=== PATIENT | male | born 1940 | race Caucasian/White ===

== ENCOUNTER 2020-11-11 20:28 | Inpatient (IN) | payer MEDICARE ==
[2020-11-11] MEDS ORDERED: Sodium Chloride 0.9% 1,000 ML IV SCH (22:45)
[2020-11-11] MEDS ORDERED: Ondansetron PF 4 MG/2 ML Vial IVP PRN (22:45)
[2020-11-11] MEDS ORDERED: Acetaminophen 325 MG TAB PO PRN (22:45)
[2020-11-11] MEDS ORDERED: Ondansetron ODT 4 MG TAB SL PRN (22:45)
[2020-11-12] MEDS ORDERED: Pharmacy to Dose REMDESIVIR IVPB PRN (00:30)
[2020-11-12] MEDS: Benzonatate 100 MG CAP PO PRN ×3 (04:23→20:48)
[2020-11-12 07:24] LABS: Anion Gap 13 mmol/L (10-20); BUN (Urea Nitrogen) 24 mg/dL (8.4-25.7); Calc. Creatinine Clearance 79 mL/min (70-130); Calcium 8.2 mg/dL (7.8-10.44); Carbon Dioxide 21 mmol/L (23-31); Chloride 107 mmol/L (98-107); Glucose 157 mg/dL (83-110); Potassium 4.1 mmol/L (3.5-5.1); Sodium 137 mmol/L (136-145)
[2020-11-12 07:25] LABS: ALT (SGPT) 29 U/L (8-55); AST (SGOT) 63 U/L (5-34); Albumin 3.3 g/dL (3.4-4.8); Alkaline Phosphatase 120 U/L (40-110); Bilirubin, Direct 0.3 mg/dL (0.1-0.3); Bilirubin, Total 0.5 mg/dL (0.2-1.2); CRP (Inflammatory) 9.66 mg/dL (= or < 0.5); Protein, Total 6.4 g/dL (5.8-8.1)
[2020-11-12 08:14] LABS: #Lymphocytes 0.6 thou/uL (1.20-3.40); #Monocytes 0.4 thou/uL (0.11-0.59); #Neutrophils 2.2 thou/uL (1.40-6.50); %Eosinophils 0.1 % (0.0-10.0); %Lymphocytes 18.9 % (21.0-51.0); %Neutrophils 69.1 % (42.0-75.0); Hemoglobin 16.1 g/dL (14.0-18.0); MDiff Complete? YES; Mean Corpuscular HGB CONC 31.5 g/dL (32.0-36.0); Mean Corpuscular Hemoglobin 29.7 pg (27.0-31.0); Mean Corpuscular Volume 94.3 fL (78.0-98.0); Mean Platelet Volume 8.6 fL (7.4-10.4); Platelet Count 113 thou/uL (130-400); Platelet Morphology Comment Appears Decreased; RBC Distribution Width 12.4 % (11.5-14.5); Red Blood Cell (RBC) Count 5.44 mill/uL (4.70-6.10); White Blood Cell (WBC) Count 3.2 thou/uL (4.8-10.8)
[2020-11-12] MEDS: Ascorbic Acid 500 mg Chewable Tablet PO SCH (08:46)
[2020-11-12] MEDS: Enoxaparin Sodium 40 MG/0.4 ML SYRINGE SC SCH (08:46)
[2020-11-12] MEDS: Dexamethasone 10 MG/ML VIAL SLOW IVP SCH (08:46)
[2020-11-12] MEDS: Cholecalciferol 1,000 UNITS (25 MCG) TAB PO SCH (08:47)
[2020-11-12] MEDS: Zinc Sulfate 220 MG CAP PO SCH (08:47)
[2020-11-12] MEDS: Famotidine 20 MG TAB PO SCH ×2 (08:47→20:49)
[2020-11-12] MEDS: Ondansetron PF 4 MG/2 ML Vial IVP PRN (12:42)
[2020-11-12] MEDS ORDERED: REMDESIVIR 200 MG in Sodium Chloride 0.9% 250 ML 210 ML IV SCH (13:00)
[2020-11-12] MEDS: Lisinopril 20 MG TAB PO SCH (20:48)
[2020-11-12] MEDS: Carvedilol 3.125 MG TAB PO SCH (20:48)
[2020-11-12] MEDS: Rosuvastatin 20 MG TAB PO SCH (20:48)
[2020-11-12] MEDS ORDERED: Senokot S 8.6-50 MG TAB PO SCH (22:15)
[2020-11-12] MEDS: Melatonin 3 MG TAB PO PRN (22:53)
[2020-11-13] MEDS: Benzonatate 100 MG CAP PO PRN ×2 (03:59→20:39)
[2020-11-13 06:22] LABS: #Lymphocytes 0.7 thou/uL (1.20-3.40); #Monocytes 0.7 thou/uL (0.11-0.59); #Neutrophils 6.2 thou/uL (1.40-6.50); %Basophils 0.1 % (0.0-1.0); %Eosinophils 0.1 % (0.0-10.0); %Lymphocytes 9.3 % (21.0-51.0); %Monocytes 9.3 % (0.0-10.0); %Neutrophils 81.2 % (42.0-75.0); Hemoglobin 17.3 g/dL (14.0-18.0); Mean Corpuscular HGB CONC 33.7 g/dL (32.0-36.0); Mean Corpuscular Hemoglobin 31.8 pg (27.0-31.0); Mean Corpuscular Volume 94.3 fL (78.0-98.0); Mean Platelet Volume 8.4 fL (7.4-10.4); Platelet Count 149 thou/uL (130-400); RBC Distribution Width 12.4 % (11.5-14.5); Red Blood Cell (RBC) Count 5.45 mill/uL (4.70-6.10); White Blood Cell (WBC) Count 7.7 thou/uL (4.8-10.8)
[2020-11-13 06:41] LABS: Anion Gap 14 mmol/L (10-20); BUN (Urea Nitrogen) 26 mg/dL (8.4-25.7); Calc. Creatinine Clearance 67 mL/min (70-130); Calcium 8.5 mg/dL (7.8-10.44); Carbon Dioxide 24 mmol/L (23-31); Chloride 107 mmol/L (98-107); Glucose 134 mg/dL (83-110); Potassium 4.7 mmol/L (3.5-5.1); Sodium 140 mmol/L (136-145)
[2020-11-13 06:44] LABS: ALT (SGPT) 47 U/L (8-55); AST (SGOT) 87 U/L (5-34); Albumin 3.3 g/dL (3.4-4.8); Alkaline Phosphatase 122 U/L (40-110); Bilirubin, Direct 0.3 mg/dL (0.1-0.3); Bilirubin, Total 0.6 mg/dL (0.2-1.2); Protein, Total 6.8 g/dL (5.8-8.1)
[2020-11-13] MEDS: Aspirin 325 MG TAB PO SCH (08:52)
[2020-11-13] MEDS: Zinc Sulfate 220 MG CAP PO SCH (08:52)
[2020-11-13] MEDS: Enoxaparin Sodium 40 MG/0.4 ML SYRINGE SC SCH (08:52)
[2020-11-13] MEDS: Senokot S 8.6-50 MG TAB PO SCH ×2 (08:52→20:37)
[2020-11-13] MEDS: Ondansetron PF 4 MG/2 ML Vial IVP PRN (08:52)
[2020-11-13] MEDS: Cholecalciferol 1,000 UNITS (25 MCG) TAB PO SCH (08:52)
[2020-11-13] MEDS: Famotidine 20 MG TAB PO SCH ×2 (08:52→20:37)
[2020-11-13] MEDS: Carvedilol 3.125 MG TAB PO SCH ×2 (08:53→20:37)
[2020-11-13] MEDS: Ascorbic Acid 500 mg Chewable Tablet PO SCH (08:53)
[2020-11-13] MEDS: Dexamethasone 10 MG/ML VIAL SLOW IVP SCH (09:34)
[2020-11-13] MEDS: REMDESIVIR 100 MG in Sodium Chloride 0.9% 250 ML 230 ML IV SCH (13:29)
[2020-11-13] MEDS ORDERED: Thiamine 100 MG TAB PO SCH (15:15)
[2020-11-13] MEDS: Lisinopril 20 MG TAB PO SCH (20:37)
[2020-11-13] MEDS: Rosuvastatin 20 MG TAB PO SCH (20:37)
[2020-11-13] MEDS: Melatonin 3 MG TAB PO PRN (20:37)
[2020-11-14] MEDS: Benzonatate 100 MG CAP PO PRN ×2 (00:31→16:33)
[2020-11-14 06:42] LABS: #Lymphocytes 0.5 thou/uL (1.20-3.40); #Monocytes 0.5 thou/uL (0.11-0.59); #Neutrophils 5.1 thou/uL (1.40-6.50); %Basophils 0.4 % (0.0-1.0); %Eosinophils 0.1 % (0.0-10.0); %Lymphocytes 8.4 % (21.0-51.0); %Monocytes 8.4 % (0.0-10.0); %Neutrophils 82.6 % (42.0-75.0); Hemoglobin 16.4 g/dL (14.0-18.0); Mean Corpuscular HGB CONC 32.7 g/dL (32.0-36.0); Mean Corpuscular Volume 94.9 fL (78.0-98.0); Mean Platelet Volume 8.2 fL (7.4-10.4); Platelet Count 166 thou/uL (130-400); RBC Distribution Width 12.3 % (11.5-14.5); White Blood Cell (WBC) Count 6.1 thou/uL (4.8-10.8)
[2020-11-14 07:15] LABS: Anion Gap 14 mmol/L (10-20); BUN (Urea Nitrogen) 37 mg/dL (8.4-25.7); Calc. Creatinine Clearance 76 mL/min (70-130); Calcium 8.3 mg/dL (7.8-10.44); Carbon Dioxide 25 mmol/L (23-31); Chloride 107 mmol/L (98-107); Glucose 113 mg/dL (83-110); Potassium 3.9 mmol/L (3.5-5.1); Sodium 142 mmol/L (136-145)
[2020-11-14 07:17] LABS: ALT (SGPT) 41 U/L (8-55); AST (SGOT) 71 U/L (5-34); Albumin 3.1 g/dL (3.4-4.8); Alkaline Phosphatase 115 U/L (40-110); Bilirubin, Direct 0.4 mg/dL (0.1-0.3); Bilirubin, Total 0.6 mg/dL (0.2-1.2); Protein, Total 6.3 g/dL (5.8-8.1)
[2020-11-14] MEDS: Dexamethasone 10 MG/ML VIAL SLOW IVP SCH (08:04)
[2020-11-14] MEDS: Aspirin 325 MG TAB PO SCH (08:39)
[2020-11-14] MEDS: Zinc Sulfate 220 MG CAP PO SCH (08:39)
[2020-11-14] MEDS: Famotidine 20 MG TAB PO SCH ×2 (08:40→20:11)
[2020-11-14] MEDS: Senokot S 8.6-50 MG TAB PO SCH ×2 (08:40→20:12)
[2020-11-14] MEDS: Carvedilol 3.125 MG TAB PO SCH ×2 (08:40→20:11)
[2020-11-14] MEDS: Enoxaparin Sodium 100 MG/ML SYRINGE SC SCH (08:40)
[2020-11-14] MEDS: Cholecalciferol 1,000 UNITS (25 MCG) TAB PO SCH (08:40)
[2020-11-14] MEDS: Ascorbic Acid 500 mg Chewable Tablet PO SCH (08:40)
[2020-11-14] MEDS: Thiamine 100 MG TAB PO SCH (08:40)
[2020-11-14] MEDS: Ondansetron PF 4 MG/2 ML Vial IVP PRN (08:47)
[2020-11-14] MEDS: REMDESIVIR 100 MG in Sodium Chloride 0.9% 250 ML 230 ML IV SCH (12:08)
[2020-11-14] MEDS: Lisinopril 20 MG TAB PO SCH (20:11)
[2020-11-14] MEDS: Melatonin 3 MG TAB PO PRN (22:47)
[2020-11-15 04:16] LABS: #Lymphocytes 0.5 thou/uL (1.20-3.40); #Monocytes 0.6 thou/uL (0.11-0.59); #Neutrophils 5.2 thou/uL (1.40-6.50); %Eosinophils 0.1 % (0.0-10.0); %Lymphocytes 8.6 % (21.0-51.0); %Monocytes 8.8 % (0.0-10.0); %Neutrophils 82.5 % (42.0-75.0); Mean Corpuscular HGB CONC 32.9 g/dL (32.0-36.0); Mean Corpuscular Hemoglobin 30.9 pg (27.0-31.0); Mean Platelet Volume 8.3 fL (7.4-10.4); Platelet Count 192 thou/uL (130-400); RBC Distribution Width 12.3 % (11.5-14.5); Red Blood Cell (RBC) Count 5.17 mill/uL (4.70-6.10); White Blood Cell (WBC) Count 6.3 thou/uL (4.8-10.8)
[2020-11-15 04:35] LABS: ALT (SGPT) 39 U/L (8-55); AST (SGOT) 61 U/L (5-34); Albumin 2.9 g/dL (3.4-4.8); Alkaline Phosphatase 102 U/L (40-110); Anion Gap 13 mmol/L (10-20); BUN (Urea Nitrogen) 35 mg/dL (8.4-25.7); Bilirubin, Total 0.7 mg/dL (0.2-1.2); Calc. Creatinine Clearance 88 mL/min (70-130); Calcium 8.2 mg/dL (7.8-10.44); Carbon Dioxide 22 mmol/L (23-31); Chloride 109 mmol/L (98-107); Globulin 3.2 g/dL (2.4-3.5); Glucose 123 mg/dL (83-110); Potassium 3.8 mmol/L (3.5-5.1); Protein, Total 6.1 g/dL (5.8-8.1); Sodium 140 mmol/L (136-145)
[2020-11-15] MEDS: Ondansetron PF 4 MG/2 ML Vial IVP PRN (06:54)
[2020-11-15] MEDS: Carvedilol 3.125 MG TAB PO SCH ×2 (08:23→20:47)
[2020-11-15] MEDS: Zinc Sulfate 220 MG CAP PO SCH (08:23)
[2020-11-15] MEDS: Aspirin 325 MG TAB PO SCH (08:23)
[2020-11-15] MEDS: Cholecalciferol 1,000 UNITS (25 MCG) TAB PO SCH (08:23)
[2020-11-15] MEDS: Ascorbic Acid 500 mg Chewable Tablet PO SCH (08:23)
[2020-11-15] MEDS: Thiamine 100 MG TAB PO SCH (08:23)
[2020-11-15] MEDS: Enoxaparin Sodium 100 MG/ML SYRINGE SC SCH (08:23)
[2020-11-15] MEDS: Senokot S 8.6-50 MG TAB PO SCH ×2 (08:23→20:46)
[2020-11-15] MEDS: Famotidine 20 MG TAB PO SCH ×2 (08:24→20:47)
[2020-11-15] MEDS: Dexamethasone 4 MG TAB PO SCH (08:24)
[2020-11-15] MEDS ORDERED: Furosemide 40 MG TAB PO SCH (09:00)
[2020-11-15] MEDS: REMDESIVIR 100 MG in Sodium Chloride 0.9% 250 ML 230 ML IV SCH (12:58)
[2020-11-15] MEDS: Lisinopril 20 MG TAB PO SCH (20:46)
[2020-11-15] MEDS: Melatonin 3 MG TAB PO PRN (20:47)
[2020-11-16 04:06] LABS: #Lymphocytes 0.6 thou/uL (1.20-3.40); #Monocytes 0.6 thou/uL (0.11-0.59); #Neutrophils 6.1 thou/uL (1.40-6.50); %Eosinophils 0.1 % (0.0-10.0); %Lymphocytes 7.7 % (21.0-51.0); %Monocytes 8.2 % (0.0-10.0); Hemoglobin 17.2 g/dL (14.0-18.0); Mean Corpuscular HGB CONC 33.7 g/dL (32.0-36.0); Mean Corpuscular Hemoglobin 31.8 pg (27.0-31.0); Mean Corpuscular Volume 94.3 fL (78.0-98.0); Platelet Count 219 thou/uL (130-400); RBC Distribution Width 12.3 % (11.5-14.5); Red Blood Cell (RBC) Count 5.43 mill/uL (4.70-6.10); White Blood Cell (WBC) Count 7.3 thou/uL (4.8-10.8)
[2020-11-16 04:26] LABS: ALT (SGPT) 44 U/L (8-55); AST (SGOT) 57 U/L (5-34); Alkaline Phosphatase 108 U/L (40-110); Anion Gap 16 mmol/L (10-20); BUN (Urea Nitrogen) 37 mg/dL (8.4-25.7); Bilirubin, Total 0.9 mg/dL (0.2-1.2); CRP (Inflammatory) 5.95 mg/dL (= or < 0.5); Calc. Creatinine Clearance 75 mL/min (70-130); Calcium 8.2 mg/dL (7.8-10.44); Carbon Dioxide 21 mmol/L (23-31); Chloride 107 mmol/L (98-107); Globulin 3.3 g/dL (2.4-3.5); Glucose 136 mg/dL (83-110); Potassium 3.6 mmol/L (3.5-5.1); Protein, Total 6.3 g/dL (5.8-8.1); Sodium 140 mmol/L (136-145)
[2020-11-16] MEDS: Aspirin 325 MG TAB PO SCH (09:01)
[2020-11-16] MEDS: Zinc Sulfate 220 MG CAP PO SCH (09:01)
[2020-11-16] MEDS: Furosemide 40 MG TAB PO SCH (09:01)
[2020-11-16] MEDS: Enoxaparin Sodium 100 MG/ML SYRINGE SC SCH (09:01)
[2020-11-16] MEDS: Cholecalciferol 1,000 UNITS (25 MCG) TAB PO SCH (09:02)
[2020-11-16] MEDS: Carvedilol 3.125 MG TAB PO SCH ×2 (09:02→21:07)
[2020-11-16] MEDS: Famotidine 20 MG TAB PO SCH ×2 (09:02→21:07)
[2020-11-16] MEDS: Ascorbic Acid 500 mg Chewable Tablet PO SCH (09:02)
[2020-11-16] MEDS: Senokot S 8.6-50 MG TAB PO SCH ×2 (09:02→21:07)
[2020-11-16] MEDS: Thiamine 100 MG TAB PO SCH (09:02)
[2020-11-16] MEDS: Dexamethasone 4 MG TAB PO SCH (09:03)
[2020-11-16] MEDS: REMDESIVIR 100 MG in Sodium Chloride 0.9% 250 ML 230 ML IV SCH (15:07)
[2020-11-16] MEDS: Lisinopril 20 MG TAB PO SCH (21:06)
[2020-11-16] MEDS: Melatonin 3 MG TAB PO PRN (21:07)
[2020-11-17 05:00] LABS: #Lymphocytes 0.5 thou/uL (1.20-3.40); #Monocytes 0.5 thou/uL (0.11-0.59); %Eosinophils 0.2 % (0.0-10.0); %Lymphocytes 5.8 % (21.0-51.0); %Monocytes 5.9 % (0.0-10.0); %Neutrophils 88.2 % (42.0-75.0); Mean Corpuscular HGB CONC 32.8 g/dL (32.0-36.0); Mean Corpuscular Hemoglobin 30.7 pg (27.0-31.0); Mean Corpuscular Volume 93.6 fL (78.0-98.0); Mean Platelet Volume 7.6 fL (7.4-10.4); Platelet Count 288 thou/uL (130-400); RBC Distribution Width 12.6 % (11.5-14.5); Red Blood Cell (RBC) Count 5.53 mill/uL (4.70-6.10); White Blood Cell (WBC) Count 9.1 thou/uL (4.8-10.8)
[2020-11-17 05:19] LABS: ALT (SGPT) 40 U/L (8-55); AST (SGOT) 53 U/L (5-34); Albumin 2.9 g/dL (3.4-4.8); Alkaline Phosphatase 113 U/L (40-110); Anion Gap 16 mmol/L (10-20); BUN (Urea Nitrogen) 36 mg/dL (8.4-25.7); CRP (Inflammatory) 2.99 mg/dL (= or < 0.5); Calc. Creatinine Clearance 78 mL/min (70-130); Calcium 8.1 mg/dL (7.8-10.44); Carbon Dioxide 22 mmol/L (23-31); Chloride 108 mmol/L (98-107); Globulin 3.1 g/dL (2.4-3.5); Glucose 123 mg/dL (83-110); Potassium 3.5 mmol/L (3.5-5.1); Sodium 142 mmol/L (136-145)
[2020-11-17] MEDS: Thiamine 100 MG TAB PO SCH (08:43)
[2020-11-17] MEDS: Enoxaparin Sodium 40 MG/0.4 ML SYRINGE SC SCH ×2 (08:43→21:17)
[2020-11-17] MEDS: Furosemide 40 MG TAB PO SCH (08:43)
[2020-11-17] MEDS: Dexamethasone 4 MG TAB PO SCH (08:43)
[2020-11-17] MEDS: Zinc Sulfate 220 MG CAP PO SCH (08:43)
[2020-11-17] MEDS: Ascorbic Acid 500 mg Chewable Tablet PO SCH (08:44)
[2020-11-17] MEDS: Carvedilol 3.125 MG TAB PO SCH ×2 (08:44→21:15)
[2020-11-17] MEDS: Senokot S 8.6-50 MG TAB PO SCH ×2 (08:44→21:18)
[2020-11-17] MEDS: Famotidine 20 MG TAB PO SCH ×2 (08:44→21:16)
[2020-11-17] MEDS: Cholecalciferol 1,000 UNITS (25 MCG) TAB PO SCH (08:44)
[2020-11-17] MEDS: Aspirin 325 MG TAB PO SCH (08:44)
[2020-11-17] MEDS: Lisinopril 20 MG TAB PO SCH (21:15)
[2020-11-17] MEDS: Melatonin 3 MG TAB PO PRN (21:16)
[2020-11-18 04:43] LABS: Hemoglobin 17.3 g/dL (14.0-18.0); Mean Corpuscular HGB CONC 32.3 g/dL (32.0-36.0); Mean Corpuscular Hemoglobin 30.4 pg (27.0-31.0); Mean Corpuscular Volume 94.3 fL (78.0-98.0); Mean Platelet Volume 8.1 fL (7.4-10.4); Platelet Count 303 thou/uL (130-400); RBC Distribution Width 12.7 % (11.5-14.5); Red Blood Cell (RBC) Count 5.69 mill/uL (4.70-6.10); White Blood Cell (WBC) Count 9.5 thou/uL (4.8-10.8)
[2020-11-18 04:44] LABS: Band 1 % (5-11); MDiff Complete? YES; Monocytes 9 % (0-10); Neutrophil 90 % (42-75); Platelet Morphology Comment Appears Adequate; RBC Morphology Normal
[2020-11-18 04:50] LABS: ALT (SGPT) 38 U/L (8-55); AST (SGOT) 52 U/L (5-34); Albumin 2.8 g/dL (3.4-4.8); Alkaline Phosphatase 120 U/L (40-110); Anion Gap 16 mmol/L (10-20); BUN (Urea Nitrogen) 36 mg/dL (8.4-25.7); Bilirubin, Total 0.9 mg/dL (0.2-1.2); CRP (Inflammatory) 1.51 mg/dL (= or < 0.5); Calc. Creatinine Clearance 83 mL/min (70-130); Calcium 8.1 mg/dL (7.8-10.44); Carbon Dioxide 19 mmol/L (23-31); Chloride 110 mmol/L (98-107); Globulin 3.2 g/dL (2.4-3.5); Glucose 132 mg/dL (83-110); Potassium 3.6 mmol/L (3.5-5.1); Sodium 141 mmol/L (136-145)
[2020-11-18] MEDS: Dexamethasone 4 MG TAB PO SCH (08:57)
[2020-11-18] MEDS: Enoxaparin Sodium 40 MG/0.4 ML SYRINGE SC SCH ×2 (08:57→20:57)
[2020-11-18] MEDS: Senokot S 8.6-50 MG TAB PO SCH ×2 (08:58→20:57)
[2020-11-18] MEDS: Aspirin 325 MG TAB PO SCH (08:58)
[2020-11-18] MEDS: Thiamine 100 MG TAB PO SCH (08:58)
[2020-11-18] MEDS: Famotidine 20 MG TAB PO SCH ×2 (08:58→20:56)
[2020-11-18] MEDS: Carvedilol 3.125 MG TAB PO SCH ×2 (08:58→20:57)
[2020-11-18] MEDS: Cholecalciferol 1,000 UNITS (25 MCG) TAB PO SCH (08:58)
[2020-11-18] MEDS: Ascorbic Acid 500 mg Chewable Tablet PO SCH (08:58)
[2020-11-18] MEDS: Zinc Sulfate 220 MG CAP PO SCH (08:58)
[2020-11-18 12:53] VITALS: BMI 27.8
[2020-11-18] MEDS: Lisinopril 20 MG TAB PO SCH (20:56)
[2020-11-18] MEDS: Melatonin 3 MG TAB PO PRN (20:58)
[2020-11-19] MEDS: Enoxaparin Sodium 40 MG/0.4 ML SYRINGE SC SCH ×2 (08:50→21:10)
[2020-11-19] MEDS: Ascorbic Acid 500 mg Chewable Tablet PO SCH (10:00)
[2020-11-19] MEDS: Dexamethasone 4 MG TAB PO SCH (10:00)
[2020-11-19] MEDS: Carvedilol 3.125 MG TAB PO SCH ×2 (10:01→21:18)
[2020-11-19] MEDS: Aspirin 325 MG TAB PO SCH (10:01)
[2020-11-19] MEDS: Senokot S 8.6-50 MG TAB PO SCH ×2 (10:04→21:09)
[2020-11-19] MEDS: Famotidine 20 MG TAB PO SCH ×2 (10:04→19:09)
[2020-11-19] MEDS: Cholecalciferol 1,000 UNITS (25 MCG) TAB PO SCH (10:04)
[2020-11-19] MEDS: Thiamine 100 MG TAB PO SCH (10:05)
[2020-11-19] MEDS: Zinc Sulfate 220 MG CAP PO SCH (10:05)
[2020-11-19] MEDS ORDERED: Propofol 1,000 MG/100 ML VIAL IV ONE (14:42)
[2020-11-19 14:51] LABS: Actual Bicarbonate (HCO3a) 20.5 mEq/L (22-28); Base Excess (BEa) -3.9 mEq/L (-2.0 to +3.0); CO2 Tension 36.2 mmHg (35.0-45.0); Calcium, Ionized (arterial) 1.18 mmol/L (1.12-1.30); Carboxyhemoglobin (COHb) 0.1 gm% (0.0-3.0); Hemoglobin (Hb) 18.8 g/dL (14.0-18.0); Potassium - ABG Lab 3.54 mmol/L (3.70-5.30); pH, Arterial 7.37 (7.35-7.45)
[2020-11-19 14:54] LABS: O2 Tension (PaO2), arterial 49.3 mmHg (> 60.0)
[2020-11-19 14:55] LABS: Puncture Site LBA
[2020-11-19] MEDS ORDERED: Vecuronium 10 MG VIAL ONE ×2 (15:28→20:28)
[2020-11-19] MEDS ORDERED: Propofol BOLUS 1,000 MG/100 ML VIAL IV PRN (15:30)
[2020-11-19] MEDS ORDERED: Fentanyl CADD 100 ML IV SCH (15:30)
[2020-11-19] MEDS ORDERED: DISCONTINUE PREVIOUS NARCOTIC PAIN MEDICATIONS AND BENZODIAZEPINES FS SCH (15:30)
[2020-11-19] MEDS ORDERED: Fentanyl BOLUS 250 ML IVPB PRN (15:30)
[2020-11-19] MEDS: Lorazepam 2 MG/ML VIAL SLOW IVP PRN ×4 (15:44→23:42)
[2020-11-19] MEDS: Propofol 1,000 MG/100 ML VIAL IV PRN (17:22)
[2020-11-19] MEDS ORDERED: Sodium Chloride 0.9% 1,000 ML IV SCH (17:30)
[2020-11-19] MEDS ORDERED: Lactated Ringer's 500 ML IV SCH (20:15)
[2020-11-19] MEDS ORDERED: Dexamethasone 10 MG in Sodium Chloride 0.9% 50 ML IVPB SCH (21:00)
[2020-11-19] MEDS: Lisinopril 20 MG TAB PO SCH (21:16)
[2020-11-19] MEDS: Dexamethasone 10 MG/ML VIAL SLOW IVP SCH (21:45)
[2020-11-19] MEDS: Vecuronium 10 MG VIAL IV PRN (23:42)
[2020-11-20] MEDS: Propofol 1,000 MG/100 ML VIAL IV PRN ×5 (02:04→17:10)
[2020-11-20] MEDS: Vecuronium 10 MG VIAL IV PRN ×2 (04:21→14:41)
[2020-11-20] MEDS: Lorazepam 2 MG/ML VIAL SLOW IVP PRN ×3 (04:21→19:43)
[2020-11-20] MEDS: Ascorbic Acid 500 mg Chewable Tablet PO SCH (08:46)
[2020-11-20] MEDS: Thiamine 100 MG TAB PO SCH (08:47)
[2020-11-20] MEDS: Cholecalciferol 1,000 UNITS (25 MCG) TAB PO SCH (08:47)
[2020-11-20] MEDS: Famotidine 20 MG TAB PO SCH ×2 (08:47→19:45)
[2020-11-20] MEDS: Dexamethasone 10 MG/ML VIAL SLOW IVP SCH (08:50)
[2020-11-20] MEDS: Acetaminophen 650 MG/20.3 ML UDCUP PER TUBE PRN (08:51)
[2020-11-20] MEDS: Zinc Sulfate 220 MG CAP PO SCH (08:51)
[2020-11-20] MEDS: Aspirin 325 MG TAB PO SCH (09:03)
[2020-11-20] MEDS: Enoxaparin Sodium 40 MG/0.4 ML SYRINGE SC SCH ×2 (09:03→19:42)
[2020-11-20] MEDS: Carvedilol 3.125 MG TAB PO SCH ×2 (09:04→19:45)
[2020-11-20] MEDS: Senokot S 8.6-50 MG TAB PO SCH ×2 (09:05→19:45)
[2020-11-20] MEDS: Cefepime 1 GM in Sodium Chloride 0.9% 100 ML IVPB SCH ×2 (11:42→23:32)
[2020-11-20] MEDS ORDERED: Lactated Ringer's 1,000 ML IV SCH (11:45)
[2020-11-20 11:49] LABS: Hemoglobin 17.7 g/dL (14.0-18.0); Mean Corpuscular HGB CONC 33.2 g/dL (32.0-36.0); Mean Corpuscular Hemoglobin 31.9 pg (27.0-31.0); Mean Corpuscular Volume 96.2 fL (78.0-98.0); Mean Platelet Volume 8.1 fL (7.4-10.4); Platelet Count 219 thou/uL (130-400); RBC Distribution Width 13.1 % (11.5-14.5); Red Blood Cell (RBC) Count 5.56 mill/uL (4.70-6.10)
[2020-11-20 11:59] LABS: ALT (SGPT) 38 U/L (8-55); AST (SGOT) 41 U/L (5-34); Albumin 2.7 g/dL (3.4-4.8); Alkaline Phosphatase 139 U/L (40-110); Anion Gap 15 mmol/L (10-20); BUN (Urea Nitrogen) 42 mg/dL (8.4-25.7); Bilirubin, Total 0.7 mg/dL (0.2-1.2); Calc. Creatinine Clearance 50 mL/min (70-130); Calcium 8.1 mg/dL (7.8-10.44); Carbon Dioxide 22 mmol/L (23-31); Chloride 113 mmol/L (98-107); Globulin 2.4 g/dL (2.4-3.5); Glucose 228 mg/dL (83-110); Potassium 4.2 mmol/L (3.5-5.1); Protein, Total 5.1 g/dL (5.8-8.1); Sodium 146 mmol/L (136-145)
[2020-11-20 12:07] LABS: Band 7 % (5-11); Large Platelets SLIGHT; Lymphocytes 5 % (21-51); MDiff Complete? YES; Monocytes 7 % (0-10); Neutrophil 81 % (42-75); Platelet Morphology Comment Appears Adequate; Polychromasia SLIGHT = 2-3 cells (100X) (0-2/hpf)
[2020-11-20] MEDS: Dexamethasone 4 mg/ml Vial SLOW IVP SCH (19:43)
[2020-11-20] MEDS: Lisinopril 20 MG TAB PO SCH ×2 (19:44→21:47)
[2020-11-21] MEDS: Lorazepam 2 MG/ML VIAL SLOW IVP PRN ×4 (01:59→14:51)
[2020-11-21] MEDS: Vecuronium 10 MG VIAL IV PRN ×4 (01:59→14:51)
[2020-11-21] MEDS: Propofol 1,000 MG/100 ML VIAL IV PRN ×2 (03:51→18:05)
[2020-11-21 04:56] LABS: Band 7 % (5-11); Hemoglobin 16.6 g/dL (14.0-18.0); Lymphocytes 3 % (21-51); MDiff Complete? YES; Mean Corpuscular Hemoglobin 30.6 pg (27.0-31.0); Mean Corpuscular Volume 95.7 fL (78.0-98.0); Mean Platelet Volume 8.2 fL (7.4-10.4); Metamyelocyte 1 % (0-0); Monocytes 1 % (0-10); Neutrophil 88 % (42-75); Platelet Count 204 thou/uL (130-400); Platelet Morphology Comment Appears Adequate; RBC Distribution Width 13.1 % (11.5-14.5); RBC Morphology Normal; Red Blood Cell (RBC) Count 5.43 mill/uL (4.70-6.10)
[2020-11-21] MEDS: Dexamethasone 4 mg/ml Vial SLOW IVP SCH ×2 (08:57→22:28)
[2020-11-21] MEDS: Famotidine 20 MG TAB PO SCH ×3 (08:58→22:28)
[2020-11-21] MEDS: Ascorbic Acid 500 mg Chewable Tablet PO SCH ×2 (08:58→15:54)
[2020-11-21] MEDS: Cholecalciferol 1,000 UNITS (25 MCG) TAB PO SCH ×2 (08:58→15:54)
[2020-11-21] MEDS: Carvedilol 3.125 MG TAB PO SCH ×3 (08:58→22:20)
[2020-11-21] MEDS: Aspirin 325 MG TAB PO SCH ×2 (08:58→15:54)
[2020-11-21] MEDS: Enoxaparin Sodium 40 MG/0.4 ML SYRINGE SC SCH ×2 (08:58→22:28)
[2020-11-21] MEDS: Senokot S 8.6-50 MG TAB PO SCH ×3 (08:58→22:28)
[2020-11-21] MEDS: Thiamine 100 MG TAB PO SCH ×2 (08:58→15:54)
[2020-11-21] MEDS: Zinc Sulfate 220 MG CAP PO SCH ×2 (08:59→15:54)
[2020-11-21] MEDS: Cefepime 1 GM in Sodium Chloride 0.9% 100 ML IVPB SCH (11:52)
[2020-11-21] MEDS: Lisinopril 20 MG TAB PO SCH (22:20)
[2020-11-21] MEDS ORDERED: Dexamethasone 4 mg/ml Vial ONE (22:26)
[2020-11-22] MEDS: Cefepime 1 GM in Sodium Chloride 0.9% 100 ML IVPB SCH ×2 (00:04→10:12)
[2020-11-22] MEDS: Propofol 1,000 MG/100 ML VIAL IV PRN (02:14)
[2020-11-22] MEDS: Acetaminophen 650 MG/20.3 ML UDCUP PER TUBE PRN ×4 (04:09→20:14)
[2020-11-22] MEDS: Lorazepam 2 MG/ML VIAL SLOW IVP PRN ×4 (04:50→23:50)
[2020-11-22 05:25] LABS: Band 9 % (5-11); Eosinophils 1 % (0-10); Hemoglobin 17.4 g/dL (14.0-18.0); Lymphocytes 2 % (21-51); MDiff Complete? YES; Mean Corpuscular Hemoglobin 31.4 pg (27.0-31.0); Mean Corpuscular Volume 95.1 fL (78.0-98.0); Mean Platelet Volume 8.7 fL (7.4-10.4); Monocytes 6 % (0-10); Neutrophil 81 % (42-75); Platelet Count 202 thou/uL (130-400); Platelet Morphology Comment Appears Adequate; RBC Distribution Width 13.4 % (11.5-14.5); RBC Morphology Normal; Reactive Lymphocytes 1 % (0-10); Red Blood Cell (RBC) Count 5.54 mill/uL (4.70-6.10); White Blood Cell (WBC) Count 12.5 thou/uL (4.8-10.8)
[2020-11-22 05:34] LABS: Anion Gap 13 mmol/L (10-20); BUN (Urea Nitrogen) 50 mg/dL (8.4-25.7); Calc. Creatinine Clearance 61 mL/min (70-130); Calcium 8.5 mg/dL (7.8-10.44); Carbon Dioxide 25 mmol/L (23-31); Chloride 111 mmol/L (98-107); Glucose 181 mg/dL (83-110); Potassium 4.3 mmol/L (3.5-5.1); Sodium 145 mmol/L (136-145)
[2020-11-22] MEDS: Senokot S 8.6-50 MG TAB PO SCH ×2 (07:36→20:15)
[2020-11-22] MEDS: Zinc Sulfate 220 MG CAP PO SCH (07:36)
[2020-11-22] MEDS: Enoxaparin Sodium 40 MG/0.4 ML SYRINGE SC SCH ×2 (07:37→20:15)
[2020-11-22] MEDS: Cholecalciferol 1,000 UNITS (25 MCG) TAB PO SCH (07:37)
[2020-11-22] MEDS: Carvedilol 3.125 MG TAB PO SCH ×2 (07:37→20:45)
[2020-11-22] MEDS: Ascorbic Acid 500 mg Chewable Tablet PO SCH (07:37)
[2020-11-22] MEDS: Famotidine 20 MG TAB PO SCH ×2 (07:37→20:15)
[2020-11-22] MEDS: Thiamine 100 MG TAB PO SCH (07:38)
[2020-11-22] MEDS: Dexamethasone 4 mg/ml Vial SLOW IVP SCH ×2 (07:38→20:16)
[2020-11-22] MEDS: Aspirin 325 MG TAB PO SCH (07:42)
[2020-11-22] MEDS: Cefepime 2 GM in Sodium Chloride 0.9% 100 ML IVPB SCH ×2 (12:06→23:50)
[2020-11-22] MEDS: Vecuronium 10 MG VIAL IV PRN (12:40)
[2020-11-22 14:03] LABS: Actual Bicarbonate (HCO3a) 23.6 mEq/L (22-28); Base Excess (BEa) -2.2 mEq/L (-2.0 to +3.0); CO2 Tension 43.8 mmHg (35.0-45.0); Carboxyhemoglobin (COHb) 0.6 gm% (0.0-3.0); Hemoglobin (Hb) 18.2 g/dL (14.0-18.0); Potassium - ABG Lab 4.28 mmol/L (3.70-5.30); pH, Arterial 7.35 (7.35-7.45)
[2020-11-22] MEDS ORDERED: Norepinephrine 8 MG/0.9% NS 250 ML ONE (15:56)
[2020-11-22 16:16] LABS: O2 Tension (PaO2), arterial 58.2 mmHg (> 60.0); Puncture Site RRA
[2020-11-22] MEDS ORDERED: Norepinephrine 8 MG/0.9% NS 250 ML IVPB SCH (16:45)
[2020-11-22] MEDS: Lisinopril 20 MG TAB PO SCH (20:45)
[2020-11-23] MEDS: Vecuronium 10 MG VIAL IV PRN ×3 (02:04→17:56)
[2020-11-23] MEDS: Lorazepam 2 MG/ML VIAL SLOW IVP PRN ×3 (02:04→17:56)
[2020-11-23] MEDS: Acetaminophen 650 MG/20.3 ML UDCUP PER TUBE PRN ×3 (05:46→17:55)
[2020-11-23] MEDS: Morphine 2 MG/ML VIAL SLOW IVP PRN ×2 (07:30→17:56)
[2020-11-23] MEDS: Dexamethasone 4 mg/ml Vial SLOW IVP SCH ×2 (07:30→20:49)
[2020-11-23] MEDS: Enoxaparin Sodium 40 MG/0.4 ML SYRINGE SC SCH ×2 (07:30→20:49)
[2020-11-23] MEDS: Ascorbic Acid 500 mg Chewable Tablet PO SCH (07:31)
[2020-11-23] MEDS: Senokot S 8.6-50 MG TAB PO SCH ×2 (07:31→20:50)
[2020-11-23] MEDS: Thiamine 100 MG TAB PO SCH (07:31)
[2020-11-23] MEDS: Cholecalciferol 1,000 UNITS (25 MCG) TAB PO SCH (07:31)
[2020-11-23] MEDS: Famotidine 20 MG TAB PO SCH ×2 (07:31→20:50)
[2020-11-23] MEDS: Zinc Sulfate 220 MG CAP PO SCH (07:32)
[2020-11-23] MEDS: Carvedilol 3.125 MG TAB PO SCH (07:32)
[2020-11-23] MEDS: Aspirin 325 MG TAB PO SCH (07:34)
[2020-11-23 07:50] LABS: Actual Bicarbonate (HCO3a) 22.5 mEq/L (22-28); Base Excess (BEa) -2.3 mEq/L (-2.0 to +3.0); CO2 Tension 39.1 mmHg (35.0-45.0); Calcium, Ionized (arterial) 1.21 mmol/L (1.12-1.30); Carboxyhemoglobin (COHb) 0.7 gm% (0.0-3.0); Potassium - ABG Lab 4.45 mmol/L (3.70-5.30); pH, Arterial 7.38 (7.35-7.45)
[2020-11-23 08:01] LABS: O2 Tension (PaO2), arterial 59.1 mmHg (> 60.0); Puncture Site RRA
[2020-11-23 08:03] LABS: ALV-art Gradient 248.525 mmHg (0-20)
[2020-11-23 08:04] LABS: Hemoglobin 17.5 g/dL (14.0-18.0); Mean Corpuscular HGB CONC 31.8 g/dL (32.0-36.0); Mean Corpuscular Hemoglobin 30.8 pg (27.0-31.0); Mean Corpuscular Volume 96.9 fL (78.0-98.0); Mean Platelet Volume 9.1 fL (7.4-10.4); Platelet Count 196 thou/uL (130-400); RBC Distribution Width 13.5 % (11.5-14.5); Red Blood Cell (RBC) Count 5.69 mill/uL (4.70-6.10); White Blood Cell (WBC) Count 13.9 thou/uL (4.8-10.8)
[2020-11-23 08:18] LABS: Anion Gap 15 mmol/L (10-20); BUN (Urea Nitrogen) 62 mg/dL (8.4-25.7); Calc. Creatinine Clearance 49 mL/min (70-130); Calcium 8.5 mg/dL (7.8-10.44); Carbon Dioxide 20 mmol/L (23-31); Chloride 116 mmol/L (98-107); Glucose 253 mg/dL (83-110); Potassium 5.2 mmol/L (3.5-5.1); Sodium 146 mmol/L (136-145)
[2020-11-23 09:29] LABS: Band 12 % (5-11); Lymphocytes 5 % (21-51); MDiff Complete? YES; Monocytes 3 % (0-10); Neutrophil 80 % (42-75); Platelet Morphology Comment Appears Adequate; Polychromasia SLIGHT = 2-3 cells (100X) (0-2/hpf); Vacuoles SLIGHT
[2020-11-23] MEDS: Cefepime 2 GM in Sodium Chloride 0.9% 100 ML IVPB SCH ×2 (11:24→23:06)
[2020-11-23] MEDS ORDERED: Carvedilol 3.125 MG TAB PO SCH (15:04)
[2020-11-23] MEDS ORDERED: Dextrose 5% w/ 20 mEq KCl 1,000 ML IV SCH (15:15)
[2020-11-24] MEDS: Lorazepam 2 MG/ML VIAL SLOW IVP PRN ×2 (00:18→08:25)
[2020-11-24] MEDS: Vecuronium 10 MG VIAL IV PRN ×3 (00:18→08:26)
[2020-11-24 04:02] LABS: #Lymphocytes 0.7 thou/uL (1.20-3.40); #Monocytes 1.3 thou/uL (0.11-0.59); #Neutrophils 15.2 thou/uL (1.40-6.50); %Lymphocytes 4.3 % (21.0-51.0); %Monocytes 7.5 % (0.0-10.0); %Neutrophils 88.2 % (42.0-75.0); Mean Corpuscular HGB CONC 31.5 g/dL (32.0-36.0); Mean Corpuscular Hemoglobin 31.2 pg (27.0-31.0); Mean Platelet Volume 9.3 fL (7.4-10.4); Platelet Count 232 thou/uL (130-400); RBC Distribution Width 13.7 % (11.5-14.5); Red Blood Cell (RBC) Count 5.78 mill/uL (4.70-6.10); White Blood Cell (WBC) Count 17.2 thou/uL (4.8-10.8)
[2020-11-24 05:09] LABS: Anion Gap 14 mmol/L (10-20); BUN (Urea Nitrogen) 76 mg/dL (8.4-25.7); Calc. Creatinine Clearance 44 mL/min (70-130); Calcium 8.8 mg/dL (7.8-10.44); Carbon Dioxide 24 mmol/L (23-31); Chloride 115 mmol/L (98-107); Glucose 300 mg/dL (83-110); Potassium 5.5 mmol/L (3.5-5.1); Sodium 147 mmol/L (136-145)
[2020-11-24] MEDS: Acetaminophen 650 MG/20.3 ML UDCUP PER TUBE PRN (08:23)
[2020-11-24] MEDS: Enoxaparin Sodium 40 MG/0.4 ML SYRINGE SC SCH (08:23)
[2020-11-24] MEDS: Cholecalciferol 1,000 UNITS (25 MCG) TAB PO SCH (08:24)
[2020-11-24] MEDS: Aspirin 325 MG TAB PO SCH (08:24)
[2020-11-24] MEDS: Senokot S 8.6-50 MG TAB PO SCH (08:24)
[2020-11-24] MEDS: Zinc Sulfate 220 MG CAP PO SCH (08:24)
[2020-11-24] MEDS: Ascorbic Acid 500 mg Chewable Tablet PO SCH (08:24)
[2020-11-24] MEDS: Famotidine 20 MG TAB PO SCH (08:24)
[2020-11-24] MEDS: Thiamine 100 MG TAB PO SCH (08:25)
[2020-11-24] MEDS: Morphine 2 MG/ML VIAL SLOW IVP PRN (08:25)
[2020-11-24] MEDS ORDERED: Dexamethasone 4 mg/ml Vial SLOW IVP SCH (09:00)
[2020-11-24] MEDS: Cefepime 2 GM in Sodium Chloride 0.9% 100 ML IVPB SCH (10:38)
[2020-11-24 12:09] VITALS: TEMP 101.4
[2020-11-24 14:27] VITALS: BP 101/64
[2020-11-24] MEDS ORDERED: Morphine 2 MG/ML VIAL SLOW IVP PRN (15:18)
[2020-11-24] MEDS ORDERED: Lorazepam 2 MG/ML VIAL SLOW IVP PRN (15:19)
[2020-11-25] MEDS ORDERED: Famotidine 20 MG TAB PO SCH (09:00)
== END 2020-11-24 15:53 | disposition expired | DRG 207 ==
LOC: T4-B 20:28 → IMCU/EMU 11-14 22:36 → CCU 11-19 14:32
PROVIDERS: ADMIT Internal Medicine; ATTEND Internal Medicine
PROC: 8E0ZXY6 Isolation (ICD-10-PCS; principal; 2020-11-11)
PROC: XW033E5 Introduction of Remdesivir Anti-infective into Peripheral Vein, Percutaneous Approach, New Technology Group 5 (ICD-10-PCS; 2020-11-12)
PROC: XW033H5 Introduction of Tocilizumab into Peripheral Vein, Percutaneous Approach, New Technology Group 5 (ICD-10-PCS; 2020-11-14)
PROC: 5A09357 Assistance with Respiratory Ventilation, Less than 24 Consecutive Hours, Continuous Positive Airway Pressure (ICD-10-PCS; 2020-11-18)
PROC: 5A1955Z Respiratory Ventilation, Greater than 96 Consecutive Hours (ICD-10-PCS; 2020-11-19)
PROC: 0BH17EZ Insertion of Endotracheal Airway into Trachea, Via Natural or Artificial Opening (ICD-10-PCS; 2020-11-19)
PROC: 0D9670Z Drainage of Stomach with Drainage Device, Via Natural or Artificial Opening (ICD-10-PCS; 2020-11-19)
PROC: 3E033XZ Introduction of Vasopressor into Peripheral Vein, Percutaneous Approach (ICD-10-PCS; 2020-11-23)
DX: U07.1 COVID-19 (principal); J12.82 Pneumonia due to coronavirus disease 2019; J80 Acute respiratory distress syndrome; N17.9 Acute kidney failure, unspecified; E87.0 Hyperosmolality and hypernatremia; Z99.89 Dependence on other enabling machines and devices; Z66 Do not resuscitate; I25.10 Atherosclerotic heart disease of native coronary artery without angina pectoris; E78.5 Hyperlipidemia, unspecified; D69.6 Thrombocytopenia, unspecified; I10 Essential (primary) hypertension; G47.00 Insomnia, unspecified; R13.10 Dysphagia, unspecified; J98.2 Interstitial emphysema; R57.8 Other shock; I46.8 Cardiac arrest due to other underlying condition; Z79.82 Long term (current) use of aspirin; Z79.899 Other long term (current) drug therapy; Z95.1 Presence of aortocoronary bypass graft; Z82.49 Family history of ischemic heart disease and other diseases of the circulatory system; Z98.890 Other specified postprocedural states
CPT/HCPCS: 36415; 36600; 71045; 71275; 80048; 80053; 80076; 82728; 82805; 83605; 83880; 84145; 84478; 84484; 85025; 85379; 86140; 87040; 87070; 87077; 87086; 87186; 87205; 89220; 93005; 94002; 94003; 94660; 96374; J0692; J1100; J1650; J2060; J2250; J2270; J2405; J2704; J3262; J3490; J7050; J8540